=== PATIENT | male | born 1935 | race Caucasian/White ===

== ENCOUNTER → 2018-05-05 08:55 | Outpatient (REF) | payer OTHER, SELFPAY ==
[2018-05-05 13:56] LABS: ALT 23 U/L (12-78); AST 27 U/L (15-37); Cholesterol 168 mg/dL (50-200); HDL Cholesterol 71 mg/dL (40-60); LDL CHOLESTEROL 94 mg/dL (<100); Triglyceride 78 mg/dL (30-150)
== END ==
LOC: NCHCN 08:55
PROVIDERS: PCP Internal Medicine; Visit Provider Internal Medicine
DX: E78.5 Hyperlipidemia, unspecified (principal); E66.3 Overweight
CPT/HCPCS: 80061; 83721; 84450; 84460

== ENCOUNTER 2020-06-30 09:31 | Outpatient (REF) | payer OTHER, SELFPAY ==
[2020-06-30 21:16] LABS: ALT 22 U/L (16-63); AST 25 U/L (15-37); Albumin 3.8 g/dL (3.4-5.0); Alkaline Phosphatase 79 U/L (46-116); Anion Gap 9.7 mmol/L (3-11); BUN 16 mg/dL (7-18); Bilirubin, Total 0.9 mg/dL (0.2-1.0); CO2 22.3 mmol/L (21.0-32.0); CREATININE 1.05 mg/dL (0.70-1.30); Calcium 8.8 mg/dL (8.5-10.1); Calculated LDL 92 mg/dL (<100); Chloride 104 mmol/L (98-107); Cholesterol 177 mg/dL (<200); Glucose 119 mg/dL (74-106); HDL Cholesterol 66 mg/dL (40-60); Potassium 4.3 mmol/L (3.5-5.1); Sodium 136 mmol/L (136-145); Total Protein 7.5 g/dL (6.4-8.2); Triglyceride 97 mg/dL (<150)
== END 2020-06-30 09:51 ==
LOC: NCHCN 09:31
PROVIDERS: PCP Internal Medicine; Visit Provider Internal Medicine
DX: E78.5 Hyperlipidemia, unspecified (principal); J44.9 Chronic obstructive pulmonary disease, unspecified; Z86.008 Personal history of in-situ neoplasm of other site; H35.30 Unspecified macular degeneration; Z00.00 Encounter for general adult medical examination without abnormal findings
CPT/HCPCS: 80053; 80061

== ENCOUNTER 2021-02-07 11:05 | Outpatient (REF) | payer OTHER, SELFPAY ==
--- OUTSIDE RECORDS SUMMARY | 2021-02-07 11:09 | XMS_ITS ---
:1935 Author Care Team Providers Name Role Phone DR. EVELYN PATEL Primary Care Provider [phone] DR. EVELYN PATEL Referring Provider [phone] Allergies Code Code System Name Reaction Severity Status Onset 626491 RxNorm Bee Pollen ? ? Active ? Tetanus ? ? Active ? Vaccines and Toxoid Medications Name Status Start Date Stop Date ? ? Aspir-81 mg tablet,delayed release Active ? Not available Take 1 tablet every day by oral route. Eye Vitamin and Minerals Active ? Not james ilable Spiriva Respimat Active ? Not available Notes: khurram Problems No Known Problems Procedures None recorded. Results Lab Results None recorded. Past Encounters None recorded. Social History Tobacco Smoking Status Former Smoker Notes: 05/15/17 Vaccine List None recorded. Plan of Care Reminders Provider Appointments None ? ? recorded. Lab None ? ? recorded. Referral None ? ? recorded. Procedures None ? ? recorded. Surgeries None ? ? recorded. Imaging None ? ? recorded. Vitals Weight Blood Pressure 76.66 kg 132/68 mm[Hg]
[2021-02-07 13:46] LABS: Anion Gap 11.5 mmol/L (3-11); BUN 14 mg/dL (7-18); CO2 23.5 mmol/L (21.0-32.0); Calcium 8.7 mg/dL (8.5-10.1); Chloride 106 mmol/L (98-107); Glucose 120 mg/dL (74-106); Potassium 4.2 mmol/L (3.5-5.1); Sodium 141 mmol/L (136-145)
== END 2021-02-07 11:06 | disposition home or self-care (01) ==
LOC: NCHCN 11:05
PROVIDERS: PCP Internal Medicine; Visit Provider Internal Medicine
DX: M18.12 Unilateral primary osteoarthritis of first carpometacarpal joint, left hand (principal); M54.2 Cervicalgia; M47.892 Other spondylosis, cervical region
CPT/HCPCS: 80048

== ENCOUNTER 2021-02-13 02:17 | Outpatient (CLI) | payer OTHER, SELFPAY ==
--- NOTE | 2021-02-13 13:24 | DI.CT_ITS ---
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 TECHNIQUE: Imaging Protocol: Axial computed tomography images with coronal and sagittal reformatted images were created and reviewed COMPARISON: CR CERV SP.WITH OBL OR FLEX/EXT from 01/21/2017 FINDINGS: Bones: No fracture or dislocations are seen. The alignment of the cervical spine is normal including the cervicovertebral junction and cervicothoracic junction. There is disc space narrowing at C4-C5, C 5-C6 and C6-C7. There endplate osteophytes present most marked at C5-6 and C6-7. There is no signif icant central spinal canal stenosis in the cervical spine. C2-3: Mild hypertrophic changes are seen at the facet joints, left greater than right. C3-4: There are hypertrophic changes of the left facet joints and the left uncovertebral joint. This causes moderate left neural foraminal stenosis. Mild hypertrophic changes are seen at the right unc overtebral joint but no significant neural foraminal stenosis is present. C4-5: There are moderate hypertrophic changes of the left uncovertebral joint and facet joint. These contribute to cause moderate left neural foraminal stenosis. Mild degenerative changes are seen on the right but no significant neural foraminal stenosis is present. C5-6: Degenerative changes of the uncovertebral joints are seen bilaterally causing [id number] bilateral neural foraminal stenosis. C6-7: Hypertrophic changes are seen at the right uncovertebral joint causing moderate right neural fo raminal stenosis. Mild degenerative changes are seen in the left but no significant neural foraminal stenosis is present. C7-T1: No significant neural foraminal stenosis. Soft Tissues: Please see the report of the CT scan of the neck performed the same day. No large disk herniations are identified. The thyroid gland is unremarkable. IMPRESSION: Moderately severe degenerative changes throughout the cervical spine resulting in multilevel neural f oraminal stenosis as described above.No significant central spinal canal stenosis. RADIATION DOSE DELIVERED: 407.71mGy.cm Total DLP 407.71mGy.cm Total DLP DATA REPOSITORY: All CT scans at this facility are submitted to the National Radiology Data Registry (NRDR) Dose Index Registry (DIR) with the [employer] ([employer]). RADIATION OPTIMIZATION: All CT scans at this facility use at least one of these dose optimization te chniques: automated exposure control; mA and/or kV adjustment per patient size (includes targeted exa ms where dose is matched to clinical indication); or iterative reconstruction.
--- NOTE | 2021-02-13 13:33 | DI.CT_ITS ---
Exam(s) CT NECK W EXAM: CT NECK W CLINICAL HISTORY: RT NECK PAIN, M54.2. TECHNIQUE: Imaging Protocol: Axial computed tomography images with coronal and sagittal reformatted images were created and reviewed. CONTRAST MATERIAL: Intravenous: Omnipaque 350 Contrast volume:100 mL COMPARISON: CR CERV SP.WITH OBL OR FLEX/EXT from 01/21/[address] CERVICAL SPINE WO from 02/13/2021 FINDINGS: Orbits and orbital soft tissues: Within normal limits. Visualized paranasal sinuses: Within normal limits. Nasopharynx: Within normal limits. Oropharynx: Within normal limits. Hypopharynx: Within normal limits. Larynx: Within normal limits. Retropharyngeal space: Within normal limits. Parotids/submandibular: Within normal limits. Thyroid gland: Within normal limits. Lymphadenopathy: There is scattered lymph nodes seen along the level one to level three all measurin g less than 8 mm in short axis diameter which are physiologic in nature. Trachea: Within normal limits. Lung apices: Centrilobular and paraseptal emphysematous changes are seen. There is scarring in the r ight lung apex. Bones: Please see the report for the CT scan of the cervical spine. Carotids/Jugular: Within normal limits. Soft tissues: Within normal limits. IMPRESSION: 1. No evidence of a soft tissue mass or enhancing lesion. 2. Centrilobular and paraseptal emphysema. RADIATION DOSE DELIVERED: Total DLP DATA REPOSITORY: All CT scans at this facility are submitted to the National Radiology Data Registry (NRDR) Dose Index Registry (DIR) with the [employer] ([employer]). RADIATION OPTIMIZATION: All CT scans at this facility use at least one of these dose optimization te chniques: automated exposure control; mA and/or kV adjustment per patient size (includes targeted exa ms where dose is matched to clinical indication); or iterative reconstruction.
[2021-02-13] MEDS: Normal Saline - Diluent 50 ML VIAL IV (13:46)
[2021-02-13] MEDS: Omnipaque 350 MG/ML 100 ML BTL IJ (13:46)
== END 2021-02-13 02:37 ==
PROVIDERS: PCP Internal Medicine; Visit Provider Internal Medicine
DX: M54.2 Cervicalgia (principal); J43.2 Centrilobular emphysema; M47.892 Other spondylosis, cervical region; M48.02 Spinal stenosis, cervical region
CPT/HCPCS: 70491; 72125; J3490

== ENCOUNTER → 2022-08-13 01:39 | Outpatient (CLI) | payer MEDICARE, SELFPAY ==
--- NOTE | 2022-08-13 | DI.RAD_ITS ---
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 UNDERLYING CAUSE TECHNIQUE: 2D digital imaging was performed. COMPARISON: No exams were available for comparison FINDINGS: HEART: Normal size. Aorta: Tortuous. PULMONARY VASCULATURE: Normal. LUNGS: Low lung volumes. Scarring right lung apex. Question of right upper lobe emphysematous hanna es. No focal infiltrate. PLEURAL SPACE: Pleural calcification seen in the along the right lower chest wall. No pleural effusi on or pneumothorax. BONE:Unremarkable for age. IMPRESSION: Right upper lobe scarring and and right lower lobe pleural calcification. DATA REPOSITORY: RADIATION DOSE DELIVERED:
[2022-08-13 14:02] LABS: ESR 8 mm/hr (0-20)
[2022-08-13 15:24] LABS: C-Reactive Protein 0.07 mg/dL (0.0-0.3)
[2022-08-15 09:58] LABS: Lysozyme (Muramidase), P 5.7 mcg/mL (2.6 - 6.0)
[2022-08-15 12:16] LABS: TB Interpretation Negative (Negative)
[2022-08-15 15:12] LABS: Syphilis IgG w/Reflex Nonreactive (Nonreactive)
== END ==
PROVIDERS: PCP Internal Medicine; Visit Provider Internal Medicine
DX: R91.8 Other nonspecific abnormal finding of lung field (principal)
CPT/HCPCS: 36415; 85549; 85652; 71046; 86140; 86480; 86592; 86780; 87556

== ENCOUNTER 2023-06-05 15:52 | Outpatient (REF) | payer MEDICARE, SELFPAY ==
[2023-06-05 21:32] LABS: Abs Immature Grans 0.02 10^3/uL (0.0-0.06); Absolute Basophil Count 0.06 10^3/uL (0.0-0.2); Absolute Eosinophil Count 0.13 10^3/uL (0.0-0.7); Absolute Lymphocyte Count 1.19 10^3/uL (1.2-3.4); Absolute Monocyte Count 0.83 10^3/uL (0.1-0.8); Absolute Neutrophil Count 3.83 10^3/uL (1.2-6.7); Eosinophils % 2.1; HCT 44.7 % (40.0-50.0); HGB 15.4 g/dL (13.5-17.5); Immature Grans % 0.3; Lymphocytes % 19.6; MCH 31.8 pg (27.0-33.0); MCHC 34.5 % (32.0-36.0); MCV 92 fL (80-95); MPV 10.8 fL (8.0-11.0); Monocytes % 13.7; Neutrophils % 63.3; Platelet Count 205 10^3/uL (130-400); RBC 4.85 10^6/uL (4.36-5.78); RDW 13.5 % (11.8-14.1); RDW-SD 45.7 fL; WBC 6.06 10^3/uL (4.4-10.8)
[2023-06-05 21:41] LABS: Iron 67 ug/dL (65-175)
[2023-06-05 21:44] LABS: ALT 27 U/L (16-63); AST 26 U/L (15-37); Albumin 3.6 g/dL (3.4-5.0); Alkaline Phosphatase 73 U/L (46-116); Anion Gap 6.1 mmol/L (3-11); BUN 16 mg/dL (7-18); Bilirubin, Total 0.6 mg/dL (0.2-1.0); CO2 27.9 mmol/L (21.0-32.0); Calcium 9.2 mg/dL (8.5-10.1); Calculated LDL 93 mg/dL (<100); Chloride 103 mmol/L (98-107); Cholesterol 171 mg/dL (<200); Estimated GFR 72.84 (mL/min/1.73m2); Glucose 114 mg/dL (74-106); HDL Cholesterol 65 mg/dL (40-60); Potassium 4.5 mmol/L (3.5-5.1); Sodium 137 mmol/L (136-145); Triglyceride 66 mg/dL (<150)
[2023-06-05 21:51] LABS: Hemoglobin A1C 5.7 % (<5.7)
== END 2023-06-05 15:53 | disposition home or self-care (01) ==
LOC: NCHCN 15:52
PROVIDERS: PCP Internal Medicine; Visit Provider Family Medicine
DX: E78.5 Hyperlipidemia, unspecified (principal); J44.9 Chronic obstructive pulmonary disease, unspecified; R79.89 Other specified abnormal findings of blood chemistry; R73.09 Other abnormal glucose
CPT/HCPCS: 80053; 80061; 83036; 83540; 85025

== ENCOUNTER 2023-07-11 10:08 | Outpatient (REF) | payer MEDICARE, SELFPAY ==
[2023-07-11 14:35] LABS: Anion Gap 10.9 mmol/L (3-11); BUN 14 mg/dL (7-18); CO2 25.1 mmol/L (21.0-32.0); CREATININE 1.1 mg/dL (0.70-1.30); Calcium 9.7 mg/dL (8.5-10.1); Chloride 102 mmol/L (98-107); Estimated GFR 64.97 (mL/min/1.73m2); Glucose 91 mg/dL (74-106); Potassium 4.6 mmol/L (3.5-5.1); Sodium 138 mmol/L (136-145)
== END 2023-07-11 10:09 | disposition home or self-care (01) ==
LOC: NCHCN 10:08
PROVIDERS: PCP Internal Medicine; Visit Provider Internal Medicine
DX: I10 Essential (primary) hypertension (principal)
CPT/HCPCS: 80048

== ENCOUNTER 2025-07-20 00:43 | Outpatient (CLI) | payer MEDICARE, SELFPAY ==
[2025-07-20 12:21] LABS: Abs Immature Grans 0.02 10^3/uL (0.0-0.06); HCT 36.4 % (40.0-50.0); HGB 11.7 g/dL (13.5-17.5); Immature Grans % 0.3 %; MCH 26.2 pg (27.0-33.0); MCHC 32.1 % (32.0-36.0); MCV 81 fL (80-95); MPV 9.2 fL (8.0-11.0); Platelet Count 218 10^3/uL (130-400); RBC 4.47 10^6/uL (4.36-5.78); RDW 19.0 % (11.8-14.1); RDW-SD 55.9 fL; WBC 6.59 10^3/uL (4.4-10.8)
[2025-07-20 13:21] LABS: ALT 16 U/L (10-49); AST 26 U/L (<34); Albumin 4.4 g/dL (3.4-5.0); Alkaline Phosphatase 86 U/L (46-116); Anion Gap 10 mmol/L (3-11); BUN 27 mg/dL (9-23); Bilirubin, Total 0.80 mg/dL (0.2-1.2); CO2 25.0 mmol/L (20.0-31.0); Calcium 9.4 mg/dL (8.3-10.6); Chloride 102 mmol/L (98-107); Glucose 93 mg/dL (74-106); Potassium 4.3 mmol/L (3.5-5.1); Sodium 137 mmol/L (136-145); Total Protein 8.0 g/dL (5.7-8.2)
== END 2025-07-20 00:44 | disposition home or self-care (01) ==
LOC: LBO 00:43
PROVIDERS: PCP Family Medicine; Visit Provider Internal Medicine
DX: C61 Malignant neoplasm of prostate (principal)
CPT/HCPCS: 36415; 80053; 84153; 84403; 85025

== ENCOUNTER 2025-08-19 01:41 | Outpatient (CLI) | payer MEDICARE, SELFPAY ==
[2025-08-19 11:38] LABS: Abs Immature Grans 0.03 10^3/uL (0.0-0.06); HCT 37.7 % (40.0-50.0); HGB 12.0 g/dL (13.5-17.5); Immature Grans % 0.4 %; MCH 26.4 pg (27.0-33.0); MCHC 31.8 % (32.0-36.0); MCV 83 fL (80-95); MPV 9.8 fL (8.0-11.0); Platelet Count 211 10^3/uL (130-400); RBC 4.54 10^6/uL (4.36-5.78); RDW 19.0 % (11.8-14.1); RDW-SD 58.2 fL; WBC 6.68 10^3/uL (4.4-10.8)
[2025-08-19 12:28] LABS: ALT 12 U/L (10-49); AST 23 U/L (<34); Albumin 4.5 g/dL (3.2-5.0); Alkaline Phosphatase 78 U/L (46-116); Anion Gap 8.6 mmol/L (3-11); BUN 25 mg/dL (9-23); Bilirubin, Total 0.8 mg/dL (0.2-1.2); CO2 26.4 mmol/L (20.0-31.0); Calcium 9.7 mg/dL (8.3-10.6); Chloride 103 mmol/L (98-107); Glucose 83 mg/dL (74-106); Potassium 4.2 mmol/L (3.5-5.1); Sodium 138 mmol/L (136-145); Total Protein 8.1 g/dL (5.7-8.2)
== END 2025-08-19 01:42 | disposition home or self-care (01) ==
PROVIDERS: PCP Family Medicine; Visit Provider Internal Medicine
DX: C61 Malignant neoplasm of prostate (principal)
CPT/HCPCS: 36415; 80053; 84153; 84403; 85025